=== PATIENT | female | born 1995 | race Caucasian/White ===

== ENCOUNTER 2016-12-15 22:00 | Emergency (ER) | payer MEDICAID ==
[2016-12-15 23:08] LABS: HCG URINE POSITIVE (NEGATIVE)
[2016-12-15 23:13] LABS: APPEARANCE CLEAR (CLEAR); BILIRUBIN NEGATIVE (NEGATIVE); COLOR STRAW (YELLOW); GLUCOSE NEGATIVE (NEGATIVE); KETONE NEGATIVE (NEGATIVE); LEUKOCYTE ESTERASE NEGATIVE (NEGATIVE); NITRITE NEGATIVE (NEGATIVE); PROTEIN NEGATIVE (NEGATIVE); SPECIFIC GRAVITY 1.015 (1.005-1.020); UROBILINOGEN NORMAL (NORMAL)
== END 2016-12-15 23:45 | disposition home or self-care (01) ==
LOC: D.ER 22:00
PROVIDERS: Emergency Medicine
DX: J01.90 Acute sinusitis, unspecified (principal); O02.81 Inappropriate change in quantitative human chorionic gonadotropin (hCG) in early pregnancy; J02.9 Acute pharyngitis, unspecified; R51 Headache; R05 Cough; R11.2 Nausea with vomiting, unspecified; F17.200 Nicotine dependence, unspecified, uncomplicated

== ENCOUNTER 2017-06-09 13:28 | Inpatient (IN) | payer MEDICAID ==
--- NOTE | ~2017-06-09 | DS ---
PATIENT:PRISCILLA LOCKE :89 MEDICAL RECORD: [id number] DISCHARGE SUMMARY ADMISSION DATE: 06/09/17 DISCHARGE DATE: 06/12/17 DATE OF ADMISSION: 06/10/2017. DATE OF DISCHARGE: 06/12/2017. ADMISSION DIAGNOSIS: Spontaneous rupture of membranes, in active labor. DISCHARGE DIAGNOSES: 1. Active labor, the patient delivered. 2. Nonreassuring tracing. PROCEDURE PERFORMED: Primary low transverse section. ATTENDING: Celeste Reyez MD HISTORY OF PRESENT ILLNESS AND REASON FOR HOSPITALIZATION: See the HPI in the chart. SUMMARY OF HOSPITALIZATION: The patient was admitted and underwent augmentation after spontaneous rupture of membranes on the director of early childhood hours of the . The patient progressed into active labor and began to have nonreassuring tracing. The patient received primary low transverse section in the director of early childhood hours of the . The patient is doing well at the time of discharge with minimal lochia and adequate pain control. DISCHARGE MEDICATIONS: Include Percocet and Motrin. She will follow up Thursday for staple removal. Precautions have been reviewed. TRANSINT:[id number] Voice Confirmation ID: [id number] DOCUMENT ID: [id number] CLEESTE REYEZ MD at 1250 CC: [id number] DICTATION DATE: 06/12/17 1310 [employer] DIRECTOR: 06/12/17 1514 DIS IN 06/12/17 [facility] [address] [place] [address]
--- NOTE | ~2017-06-09 | OP ---
PATIENT NAME: PRISCILLA LOCKE MEDICAL RECORD: [id number] :89 LOCATION:RO [id number].1274 ADMISSION DATE:06/09/17 SURGEON: LUIGI REYEZ MD DATE OF OPERATION: 06/10/2017 PREOPERATIVE DIAGNOSES: 1. Active labor at term. 2. Nonreassuring tracing. POSTOPERATIVE DIAGNOSES: 1. Active labor at term. 2. Nonreassuring tracing. PROCEDURE: Primary low transverse section. SURGEON: Luigi Reyez MD. BASEBALL SEWER HAND: Jacques Hinson. ANESTHESIA: Continuous lumbar epidural. FINDINGS: Viable male , vertex presentation, Apgars 8 and 9, weight 6 pounds 3 ounces. Unremarkable uterus, tubes, and ovaries bilaterally. SPECIMEN REMOVED: Placenta. SPECIMEN DISPOSITION: Discarded. ESTIMATED BLOOD LOSS: 700 cc. FLUIDS: 1000 cc of lactated Ringer's. URINE OUTPUT: 100 cc of clear urine. COMPLICATIONS: None. DRAINS: Aviles to gravity. INDICATIONS: The patient is a 21-year-old G1, para 0 at 40 weeks' gestation with spontaneous rupture of membranes on the morning of the . The patient received Pitocin augmentation after presentation to labor and delivery and progressed from 1-1/2, 80% cervix to 6 cm, complete and 0 station. The patient had 2 significant bradycardic events during the laboring course. After the second bradycardic event, the patient also noted to have repetitive late decelerations and after discussion with the patient, it was decided to move forward with a section. DESCRIPTION OF PROCEDURE: After informed consent was assured, the patient was taken to the operating room where anesthetic was assessed and found to be adequate after the patient has been prepped and draped. A Pfannenstiel incision is now made and the abdomen is entered bluntly. An Sherif O retractor was inserted and tightened. The Nico all-purpose retractor inserted and bladder flap developed. The bladder retractor is now reinserted. Low transverse hysterotomy was performed. is now delivered onto the abdomen atraumatically. Cord was doubly clamped and cut and the infant was passed to the awaiting attendant. OPERATIVE REPORT [id number] PRISCILLA LOCKE Cord blood samples obtained. The placenta was delivered via Crede maneuver and the uterus closed with a running locked stitch of chromic. Pelvis is irrigated and irrigant removed and the initial count is correct. Rectus bellies were inspected. Bleeding vessels cauterized and peritoneum was reapproximated with a single interrupted stitch of chromic. Fascia was closed with Vicryl in a running fashion. Subcutaneous tissues inspected. Bleeding vessels cauterized and the skin reapproximated with nabil. Sterile dressing applied. Sponge, lap, needle counts correct times 3 at the close of this procedure. TRANSINT:[id number] Voice Confirmation ID: [id number] DOCUMENT ID: [id number] LUIGI REYEZ MD at 1314 CC: [id number] DICTATION DATE: 06/10/17228 [employer] DECORATOR: 06/10/17 0746 ADM IN [place] [id number] [place] [id number]
[2017-06-09 13:46] VITALS: BP 136/78; BMI 23.5
[2017-06-09 14:35] LABS: BASOPHILS 0.2 % (0-2); EOSINOPHILS 1.4 % (0-7); HEMATOCRIT 38.3 % (36.0-48.0); HEMOGLOBIN 13.1 g/dL (12-16); IMMATURE GRANULOCYTES 0.2 % (0-5); LYMPHOCYTES 15.5 % (15-50); MCH 30.4 pg (26.0-34.0); MCHC 34.2 g/dL (31.0-37.0); MCV 88.9 fL (80.0-100.0); MEAN PLATELET VOLUME 9.9 fL (7.4-10.4); MONOCYTES 8.9 % (2-11); NEUTROPHILS 73.8 % (40-80); PLATELET COUNT 234 10x3/uL (130-400); RBC 4.31 10x6/uL (4.00-5.40); RDW 12.4 % (11.5-14.5); WBC 9.3 10x3/uL (4.8-10.8)
[2017-06-09 14:41] LABS: APPEARANCE CLOUDY (CLEAR); BILIRUBIN NEGATIVE (NEGATIVE); COLOR YELLOW (YELLOW); GLUCOSE NEGATIVE (NEGATIVE); KETONE NEGATIVE (NEGATIVE); NITRITE NEGATIVE (NEGATIVE); PROTEIN 1+ mg/dL (NEGATIVE); SPECIFIC GRAVITY 1.015 (1.005-1.020); UROBILINOGEN NORMAL (NORMAL)
[2017-06-09 14:43] LABS: BACTERIA MODERATE /hpf (NONE SEEN); RED CELLS - URINE 0-5 /hpf (0-5); WHITE CELLS - URINE 25-50 /hpf (0-5)
[2017-06-09 14:44] LABS: MUCUS <1+ /lpf (NONE SEEN)
[2017-06-09 14:50] LABS: UDS - AMPHET NEGATIVE QUAL (NEGATIVE); UDS - BARB NEGATIVE QUAL (NEGATIVE); UDS - BENZO NEGATIVE QUAL (NEGATIVE); UDS - COCAINE NEGATIVE QUAL (NEGATIVE); UDS - OPIATE NEGATIVE QUAL (NEGATIVE); UDS - PCP NEGATIVE QUAL (NEGATIVE); UDS - THC NEGATIVE QUAL (NEGATIVE)
[2017-06-09 19:22] LABS: ALBUMIN 2.5 g/dL (3.4-5.0); ALKALINE PHOSPHATASE 195 U/L (46-116); ALT (SGPT) 12 U/L (10-68); CALC OSMOLALITY 270 mosm/kg (275-300); CALCIUM 8.4 mg/dL (8.5-10.1); CARBON DIOXIDE 22.9 mmol/L (21.0-32.0); CHLORIDE - SERUM 101 mmol/L (98-107); CREATININE - SERUM 0.6 mg/dL (0.6-1.3); GLUCOSE 78 mg/dL (74-106); POTASSIUM - SERUM 3.5 mmol/L (3.5-5.1); PROTEIN - SERUM 6.7 g/dL (6.4-8.2); SODIUM 136 mmol/L (136-145); UREA NITROGEN 13 mg/dL (7-18); URIC ACID 5.5 mg/dL (2.6-7.2); eGFR NON AFRICAN AMERICAN > 90 mL/min (90-120)
[2017-06-10 02:56] VITALS: BP 127/77
[2017-06-10 06:14] LABS: RAPID PLASMA REAGIN Non Reactive (Non Reactive)
[2017-06-10 08:28] VITALS: BP 151/74
[2017-06-10 13:58] VITALS: BP 135/86
[2017-06-10 19:31] VITALS: BP 134/86
[2017-06-11 06:17] LABS: BASOPHILS 0.2 % (0-2); EOSINOPHILS 1.5 % (0-7); HEMATOCRIT 32.1 % (36.0-48.0); HEMOGLOBIN 10.9 g/dL (12-16); IMMATURE GRANULOCYTES 0.3 % (0-5); LYMPHOCYTES 16.1 % (15-50); MCH 30.6 pg (26.0-34.0); MCV 90.2 fL (80.0-100.0); MEAN PLATELET VOLUME 9.5 fL (7.4-10.4); MONOCYTES 7.9 % (2-11); RBC 3.56 10x6/uL (4.00-5.40); RDW 12.7 % (11.5-14.5)
[2017-06-11 06:28] LABS: PLATELET COUNT 182 10x3/uL (130-400)
[2017-06-11 07:35] VITALS: BP 134/82
[2017-06-11 10:54] VITALS: BP 133/75
[2017-06-11 19:07] VITALS: BP 120/74
[2017-06-12 04:07] VITALS: BP 137/85
[2017-06-12 07:41] VITALS: BP 139/75
[2017-06-12 12:28] VITALS: BP 137/79
[2017-06-12] MEDS ORDERED: IBUPROFEN800 MG PO (13:41)
[2017-06-12] MEDS ORDERED: PERCOCET 7.5/321 TAB PO (13:42)
== END 2017-06-12 14:39 | disposition home or self-care (01) | DRG 766 ==
LOC: D.LDO 13:28 → D.LD 13:48
PROVIDERS: Obstetrics & Gynecology
PROC: 10D00Z1 Extraction of Products of Conception, Low, Open Approach (ICD-10-PCS; principal; 2017-06-10 07:00)
DX: O99.824 Streptococcus B carrier state complicating childbirth (principal); Z3A.40 40 weeks gestation of pregnancy; Z37.0 Single live birth; O99.334 Smoking (tobacco) complicating childbirth; O76 Abnormality in fetal heart rate and rhythm complicating labor and delivery